=== PATIENT | male | born 1930 | race Caucasian/White ===

== ENCOUNTER 2018-07-27 07:11 | Inpatient (IN) ==
--- NOTE | 2018-07-27 07:44 | ED ---
HPI General Chief complaint: Fall Stated complaint: Fall Time Seen by Provider: 07/27/18 07:31 History of Present Illness HPI narrative: Patient is an 88 pleasant though very hard of hearing male presents emergency department for evaluation of left knee and left hip pain after fall in his front yard. Patient states he has a history of inner ear problem and gets dizzy frequently and falls frequently. Patient states he was going out to meet the shuttle bus because he is going to [place] to have a cochlear implant placed in the [facility]. He became dizzy fell landing on his left knee and left hip. He states he just needs something for the pain. Initially he denies any head injury but states he is fallen 15 times in the past 24 hours is unsure as to whether he hit his head or not. His history is somewhat limited by his poor hearing. Related Data Home Medications Medication Instructions Recorded Confirmed aspirin 325 mg PO DAILY 07/27/18 07/27/18 clopidogrel [Plavix] 75 mg PO DAILY 07/27/18 07/27/18 enalapril maleate 2.5 mg PO DAILY 07/27/18 07/27/18 ferrous sulfate 325 mg PO TID 07/27/18 07/27/18 hydrochlorothiazide 25 mg PO DAILY 07/27/18 07/27/18 lovastatin 40 mg PO DAILY 07/27/18 07/27/18 metoprolol tartrate 25 mg PO DAILY 07/27/18 07/27/18 niacin 1,000 mg PO DAILY 07/27/18 07/27/18 pantoprazole [Protonix] 40 mg PO DAILY 07/27/18 07/27/18 Previous Rx's Medication Instructions Recorded hydrocodone-acetaminophen [[place]] 1 tab PO Q4H #40 tab 07/30/18 rivaroxaban [Xarelto] 10 mg PO DAILY #14 tab 07/30/18 Allergies Allergy/AdvReac Type Severity Reaction Status Date / Time amoxicillin Allergy Rash, Verified 07/27/18 11:23 Generalized Review of Systems ROS: all other systems reviewed are negative [facility] Medical History Medical History Anemia (Acute) Atherosclerotic heart disease (Acute) Atrial fibrillation (Acute) Bilateral primary osteoarthritis of knee (Acute) Blurred vision (Acute) Chronic kidney disease, stage 3 (Acute) Hearing loss (Acute) History of fall (Acute) Hyperlipidemia (Acute) Hypertension (Acute) Stricture of artery (Acute) Hx of TIA (transient ischemic attack) and stroke (Acute) Testicle cancer (Acute) Surgical History Surgical History History of orchiectomy (Acute) Hx of angioplasty (Acute) Hx of removal of testicle (Acute) History of bilateral knee replacement (Acute) History of left hip replacement (Acute) Family History Family History Other Family history non-contributory Social History Social History Substance History: No History of Abuse Second Hand Smoke Exposure: No Smoking Status: Never smoker How Often Do You Have a Drink Containing Alcohol: Never Recent Travel in [facility] within the Last 8 Weeks: No Recent Out of Country Travel within the Last 8 Weeks: No Immunization History Tetanus Immunization: Unsure Exam Narrative Exam Narrative: GENERAL: Well-developed well-nourished, no obvious distress. SKIN: Focused skin assessment warm/dry. Abrasions over the left elbow, left knee and left tib fib all of which are nonbleeding and do not require any repair. HEAD: Atraumatic. Normocephalic. No davis signs no raccoon's eyes EYES: Pupils equal and round. No scleral icterus. No injection or drainage. ENT: No nasal bleeding or discharge. Mucous membranes pink and moist. NECK: Trachea midline. No JVD. CARDIOVASCULAR: Regular rate and rhythm. No murmur appreciated. RESPIRATORY: No accessory muscle use. Clear to auscultation. Breath sounds equal bilaterally. GASTROINTESTINAL: Abdomen soft, non-tender, nondistended. Hepatic and splenic margins not palpable. MUSCULOSKELETAL: No obvious deformities. No clubbing. No cyanosis. No edema. No obvious shortening or deformity. There is some mild joint effusion on the left knee and a well-healed surgical scar in the left knee. Left elbow nontender. Remainder of the extremity exam is atraumatic. No midline CT or L- spine tenderness. NEUROLOGICAL: Awake and alert. No obvious cranial nerve deficits. Motor grossly within normal limits. Normal speech. PSYCHIATRIC: Appropriate mood and affect; insight and judgment normal. Course Initial Documented Vital Signs Pulse Rate 55 L 07/27/18 07:20 Respiratory Rate 16 07/27/18 07:20 Blood Pressure 144/65 H 07/27/18 07:20 Pulse Oximetry 99 07/27/18 07:20 Last Documented Vital Signs Temperature 97.9 F 07/31/18 12:51 Pulse Rate 78 07/31/18 12:51 Respiratory Rate 19 07/31/18 12:51 Blood Pressure 113/55 L 07/31/18 12:51 Pulse Oximetry 95 07/31/18 12:51 Medical Decision Making [facility] Narrative Medical decision making narrative: Patient is an 88-year-old male presents emergency department for evaluation of fall after a dizzy spell. He is incredibly hard of hearing limiting his history. He does have bruising in bilateral upper extremities and I wonder if he is on Coumadin as he is in atrial fibrillation. He does not know his history. CT of the head ordered is negative. Knee x-ray negative, elbow x-ray negative. X-rays of the left hip show an acute subtrochanteric hip fracture about his previous complete hip replacement. Patient's pulse motor and sensory were intact distally in all 4 extremities. No other injuries were identified on physical exam or imaging. Basic labs preoperative chest x-ray and EKG have been ordered. We are waiting for his family member to return with his medication list and history. When I explained the patient had a broken hip he was able to register this information initially but there may be a small component of dementia or memory loss as he has to be reminded several times that his hip is broken. His initial hip replacement he states was done years ago by the [employer]. Medical Screen Exam Complete: Yes Emergency Medical Condition: Yes Lab Data Result diagrams: 07/31/18 04:10 07/28/18 05:10 Lab Results 07/27/18 07/27/18 07/27/18 Range/Units 09:02 09:02 09:02 WBC 8.7 (4.0-11.0) th/mm3 RBC 3.78 L (4.50-5.90) mil/mm3 Hgb 12.1 L (13.0-17.0) gm/dL Hct 35.4 L (39.0-51.0) % MCV 93.8 (80.0-100.0) fL MCH 32.1 (27.0-34.0) pg MCHC 34.2 (32.0-36.0) % RDW 14.3 (11.6-17.2) % Plt Count 145 L (150-450) th/mm3 MPV 8.1 (7.0-11.0) fL Neut % (Auto) 72.2 H (16.0-70.0) % Lymph % (Auto) 16.3 (9.0-44.0) % Whitman % (Auto) 7.9 (0.0-8.0) % Eos % (Auto) 2.9 (0.0-4.0) % Baso % (Auto) 0.7 (0.0-2.0) % Neut # (Auto) 6.3 (1.8-7.7) th/mm3 Lymph # (Auto) 1.4 (1.0-4.8) th/mm3 Whitman # (Auto) 0.7 (0.0-0.9) th/mm3 Eos # (Auto) 0.3 (0.0-0.4) th/mm3 Baso # (Auto) 0.1 (0.0-0.2) th/mm3 WBC Differential . Differential Comment Auto diff final PT (9.8-11.6) sec INR Ratio APTT (23.4-31.7) sec Sodium 138 (136-145) meq/L Potassium 4.3 (3.5-5.1) meq/L Chloride 107 (98-107) meq/L Carbon Dioxide 24.6 (21.0-32.0) meq/L Anion Gap 6 (5-15) meq/L BUN 19 H (7-18) mg/dL Creatinine 1.48 H (0.60-1.30) mg/dL Estimated GFR 45 L (>89) mL/min Random Glucose 94 (74-106) mg/dL Calcium 9.0 (8.5-10.1) mg/dL Total Bilirubin 0.6 (0.2-1.0) mg/dL AST 21 (15-37) U/L ALT 17 (12-78) U/L Alkaline Phosphatase 102 (45-117) U/L Total Protein 6.4 (6.4-8.2) g/dL Albumin 3.6 (3.4-5.0) g/dL Blood Type O Negative Blood Type Recheck Required Antibody Screen Negative MTS Gel Crossmatch 07/27/18 07/28/18 07/29/18 Range/Units 09:02 05:10 04:51 WBC (4.0-11.0) th/mm3 RBC (4.50-5.90) mil/mm3 Hgb 8.3 L D (13.0-17.0) gm/dL Hct 24.5 L (39.0-51.0) % MCV (80.0-100.0) fL MCH (27.0-34.0) pg MCHC (32.0-36.0) % RDW (11.6-17.2) % Plt Count (150-450) th/mm3 MPV (7.0-11.0) fL Neut % (Auto) (16.0-70.0) % Lymph % (Auto) (9.0-44.0) % Whitman % (Auto) (0.0-8.0) % Eos % (Auto) (0.0-4.0) % Baso % (Auto) (0.0-2.0) % Neut # (Auto) (1.8-7.7) th/mm3 Lymph # (Auto) (1.0-4.8) th/mm3 Whitman # (Auto) (0.0-0.9) th/mm3 Eos # (Auto) (0.0-0.4) th/mm3 Baso # (Auto) (0.0-0.2) th/mm3 WBC Differential Differential Comment PT 11.6 (9.8-11.6) sec INR 1.1 Ratio APTT 25.5 (23.4-31.7) sec Sodium 138 (136-145) meq/L Potassium 4.5 (3.5-5.1) meq/L Chloride 108 H (98-107) meq/L Carbon Dioxide 24.6 (21.0-32.0) meq/L Anion Gap 5 (5-15) meq/L BUN 18 (7-18) mg/dL Creatinine 1.30 (0.60-1.30) mg/dL Estimated GFR 52 L (>89) mL/min Random Glucose 97 (74-106) mg/dL Calcium 7.9 L D (8.5-10.1) mg/dL Total Bilirubin (0.2-1.0) mg/dL AST (15-37) U/L ALT (12-78) U/L Alkaline Phosphatase (45-117) U/L Total Protein (6.4-8.2) g/dL Albumin (3.4-5.0) g/dL Blood Type Blood Type Recheck Antibody Screen MTS Gel Crossmatch 07/30/18 07/30/18 07/31/18 Range/Units 04:42 07:37 04:10 WBC (4.0-11.0) th/mm3 RBC (4.50-5.90) mil/mm3 Hgb 6.6 L* 9.6 L D (13.0-17.0) gm/dL Hct 19.7 L* 27.8 L (39.0-51.0) % MCV (80.0-100.0) fL MCH (27.0-34.0) pg MCHC (32.0-36.0) % RDW (11.6-17.2) % Plt Count (150-450) th/mm3 MPV (7.0-11.0) fL Neut % (Auto) (16.0-70.0) % Lymph % (Auto) (9.0-44.0) % Whitman % (Auto) (0.0-8.0) % Eos % (Auto) (0.0-4.0) % Baso % (Auto) (0.0-2.0) % Neut # (Auto) (1.8-7.7) th/mm3 Lymph # (Auto) (1.0-4.8) th/mm3 Whitman # (Auto) (0.0-0.9) th/mm3 Eos # (Auto) (0.0-0.4) th/mm3 Baso # (Auto) (0.0-0.2) th/mm3 WBC Differential Differential Comment PT (9.8-11.6) sec INR Ratio APTT (23.4-31.7) sec Sodium (136-145) meq/L Potassium (3.5-5.1) meq/L Chloride (98-107) meq/L Carbon Dioxide (21.0-32.0) meq/L Anion Gap (5-15) meq/L BUN (7-18) mg/dL Creatinine (0.60-1.30) mg/dL Estimated GFR (>89) mL/min Random Glucose (74-106) mg/dL Calcium (8.5-10.1) mg/dL Total Bilirubin (0.2-1.0) mg/dL AST (15-37) U/L ALT (12-78) U/L Alkaline Phosphatase (45-117) U/L Total Protein (6.4-8.2) g/dL Albumin (3.4-5.0) g/dL Blood Type O Negative Blood Type Recheck Antibody Screen Negative MTS Gel Crossmatch See Detail Imaging Data Radiologist's impression: Cervical Spine CT 07/27/18 07:38 CONCLUSION: Negative trauma study. Elbow X-Ray 07/27/18 07:38 CONCLUSION: Degenerative changes, no fracture. Follow-up in 7-10 days is symptoms persist. Head CT 07/27/18 07:38 CONCLUSION: Atrophy, otherwise negative for an acute process. Jadiel Mendez MD FACR . Hip X-Ray 07/27/18 07:38 CONCLUSION: Subtrochanteric fracture across the total hip arthroplasty, femoral component currently in reasonable alignment Knee X-Ray 07/27/18 07:38 CONCLUSION: Anatomic alignment, no fracture Extensive vascular calcifications Chest X-Ray 07/27/18 08:45 CONCLUSION: Moderate congestive failure, no pneumothorax. Hip X-Ray 07/28/18 00:00 CONCLUSION: Status post open right internal fixation. Hip X-Ray 07/28/18 00:00 CONCLUSION: 1. Status post left hip arthroplasty revision, as above. Discharge Plan Discharge Disposition Patient Disposition: ED Admit(ED Internal Use Only) Discharge Condition Condition: Stable Discharge Order Discharge Orders: Discharge Order (Routine); Ordered 07/31/18 Ordered By: Sada Cox [facility] Clear for Discharge (Routine); Ordered 07/30/18 Ordered By: Tiburcio Sauer ED Use Only Admit Order (Routine); Ordered 07/27/18 Ordered By: Garrett Llanes Discharge Details Diagnosis: Closed hip fracture Physicians Team ED Provider: Garrett Llanes Primary Care Provider: Hubert Lehman V Attending Provider: Katie Booker Other Providers: Aris Kearney ; Rodolfo,Rodolfo Status ED Status: Left Department Discharge Information Discharge Date/Time: 07/27/18 12:24
--- NOTE | 2018-07-27 08:41 | XR ---
EXAM DATE: 07/27/2018 8:26 AM EST AGE/SEX: 88 years / Male INDICATIONS: Fell today, pain left hip, left elbow, and left knee CLINICAL DATA: This is the patient's initial encounter. Patient reports that signs and symptoms have been present for 1 day and indicates a pain score of 10/10. MEDICAL/SURGICAL HISTORY: Non-responsive. . left knee and left hip replaced COMPARISON: No prior exams available for comparison. FINDINGS: There is no joint effusion evident. Degenerative changes are present about the elbow. Alignment anato shankar. Fracture is not appreciated. CONCLUSION: Degenerative changes, no fracture. Follow-up in 7-10 days is symptoms persist. Electronically signed by: Jadiel Mendez MD 07/27/2018 8:40 AM EST
--- NOTE | 2018-07-27 08:42 | XR ---
EXAM DATE: 07/27/2018 8:29 AM EST AGE/SEX: 88 years / Male INDICATIONS: Fell today, pain left elbow, left hip and left knee CLINICAL DATA: This is the patient's initial encounter. Patient reports that signs and symptoms have been present for 1 day and indicates a pain score of 10/10. MEDICAL/SURGICAL HISTORY: Non-responsive. . left knee and left hip replaced COMPARISON: . FINDINGS: There is a fracture across the left prosthesis just below the intertrochanteric line. Distal femurs intact Extensive vascular opacifications are noted. Hemipelvis is intact. CONCLUSION: Subtrochanteric fracture across the total hip arthroplasty, femoral component currently in reasonable alignment Electronically signed by: Jadiel Mendez MD 07/27/2018 8:41 AM EST
--- NOTE | 2018-07-27 08:44 | XR ---
EXAM DATE: 07/27/2018 8:34 AM EST AGE/SEX: 88 years / Male INDICATIONS: Fell today, pain left knee, left hip and left elbow CLINICAL DATA: This is the patient's initial encounter. Patient reports that signs and symptoms have been present for 1 day and indicates a pain score of 10/10. MEDICAL/SURGICAL HISTORY: Non-responsive. . left hip and left knee replaced COMPARISON: No prior exams available for comparison. FINDINGS: Extensive vascular calcic K some noted in this patient with a remote total knee arthroplasty. Prosthe sis is well-seated. Alignment anatomic. Fracture is not appreciated. Old appearing osteotomy of the mid fibula is noted as well. CONCLUSION: Anatomic alignment, no fracture Extensive vascular calcifications Electronically signed by: Jadiel Mendez MD 07/27/2018 8:42 AM EST
--- NOTE | 2018-07-27 09:00 | CT ---
EXAM DATE: 07/27/2018 8:58 AM EST AGE/SEX: 88 years / Male INDICATIONS: Patient fell, dizziness. CLINICAL DATA: This is the patient's initial encounter. Patient reports that signs and symptoms have been present for 1 day and indicates a pain score of 0/10. MEDICAL/SURGICAL HISTORY: Carcinoma, testicular. None. RADIATION DOSE: 36.92 CTDI (mGy) COMPARISON: No prior exams available for comparison. TECHNIQUE: CT of the head without contrast. Using automated exposure control and adjustment of the mA and/or kV according to patient size, radiation dose was kept as low as reasonably achievable to ob tain optimal diagnostic quality images. DICOM format image data is available electronically for revi ew and comparison. FINDINGS: There is central and cortical atrophy with dilatation of ventricular and sulcal spaces. There is no parenchymal hemorrhage, acute infarction or mass lesion identified. There are no extra-axial fluid c ollections appreciated. Periventricular white matter changes are noted. The posterior fossa is unrem arkable with midline fourth ventricle. The portion of the orbits and paranasal sinuses visualized are unremarkable. CONCLUSION: Atrophy, otherwise negative for an acute process. Jadiel Mendez MD FACR . Electronically signed by: Jadiel Mendez MD 07/27/2018 8:59 AM EST
[2018-07-27] MEDS ORDERED: Morphine Inj 4 MG/ML Vial IV.PUSH PRN (09:06)
[2018-07-27] MEDS: Sod Chloride 0.9% Inj 1,000 ML IV.CONT SCH ×2 (09:10→20:54)
[2018-07-27 09:12] LABS: Baso # (Auto) 0.1 th/mm3 (0.0-0.2); Baso % (Auto) 0.7 % (0.0-2.0); Eos # (Auto) 0.3 th/mm3 (0.0-0.4); Eos % (Auto) 2.9 % (0.0-4.0); Hematocrit 35.4 % (39.0-51.0); Hemoglobin 12.1 gm/dL (13.0-17.0); Lymph # (Auto) 1.4 th/mm3 (1.0-4.8); Lymph % (Auto) 16.3 % (9.0-44.0); Mean Corpuscular HGB Conc 34.2 % (32.0-36.0); Mean Corpuscular Hemoglobin 32.1 pg (27.0-34.0); Mean Corpuscular Volume 93.8 fL (80.0-100.0); Mean Platelet Volume 8.1 fL (7.0-11.0); Mono # (Auto) 0.7 th/mm3 (0.0-0.9); Mono % (Auto) 7.9 % (0.0-8.0); Neut # (Auto) 6.3 th/mm3 (1.8-7.7); Neut % (Auto) 72.2 % (16.0-70.0); Platelet Count 145 th/mm3 (150-450); Red Blood Count 3.78 mil/mm3 (4.50-5.90); Red Cell Distribution Width 14.3 % (11.6-17.2); White Blood Count 8.7 th/mm3 (4.0-11.0)
--- NOTE | 2018-07-27 09:14 | CT ---
EXAM DATE: 07/27/2018 9:01 AM EST AGE/SEX: 88 years / Male INDICATIONS: Neck pain after fall. CLINICAL DATA: This is the patient's initial encounter. Patient reports that signs and symptoms have been present for 1 day and indicates a pain score of 0/10. MEDICAL/SURGICAL HISTORY: Carcinoma, testicular. None. RADIATION DOSE: 25.45 CTDI (mGy) COMPARISON: No prior exams available for comparison. TECHNIQUE: Contiguous axial images were obtained using helical multirow detector technique. The vol umetric data was post-processed with multiplanar reconstruction in oblique axial, sagittal, and coron al planes. Using automated exposure control and adjustment of the mA and/or kV according to patient s ize, radiation dose was kept as low as reasonably achievable to obtain optimal diagnostic quality bret ges. DICOM format image data is available electronically for review and comparison. FINDINGS: Vertebrae: Normal vertebral body height. The dens is intact. There is mild osteopenia. Discs: Diffuse degenerative disc changes noted with disc space narrowing and hypertrophic changes. Th ere are degenerative changes involving the atlantoaxial joint with prominent capsule calcification. Alignment: Normal. No subluxation. Axial images demonstrate degenerative disc changes with disc osteophyte complexes. There are degenera tive change involving the facet joints. There is no evidence of fracture. Paravertebral soft tissues appear unremarkable. CONCLUSION: Negative trauma study. Electronically signed by: Glenn Davila MD 07/27/2018 9:12 AM EST
--- NOTE | 2018-07-27 09:14 | XR ---
EXAM DATE: 07/27/2018 9:04 AM EST AGE/SEX: 88 years / Male INDICATIONS: Fell today, chest pain CLINICAL DATA: This is the patient's initial encounter. Patient reports that signs and symptoms have been present for 1 day and indicates a pain score of 2/10. MEDICAL/SURGICAL HISTORY: None. . left hip and left knee replaced COMPARISON: No prior exams available for comparison. FINDINGS: The heart is enlarged. Mild to moderate interstitial edema is present. There is no pneumothorax. Ther e is no pleural effusion. Degenerative changes with old rotator cuff tear are seen about the left shoulder. Displaced fracture is not appreciated. CONCLUSION: Moderate congestive failure, no pneumothorax. Electronically signed by: Jadiel Mendez MD 07/27/2018 9:12 AM EST
[2018-07-27 09:21] LABS: Activated Partial Thrombo Time 25.5 sec (23.4-31.7); INR 1.1 Ratio; Prothrombin Time 11.6 sec (9.8-11.6)
[2018-07-27 09:26] LABS: Alanine Aminotransferase 17 U/L (12-78); Albumin 3.6 g/dL (3.4-5.0); Anion Gap 6 meq/L (5-15); Aspartate Aminotransferase 21 U/L (15-37); Blood Urea Nitrogen 19 mg/dL (7-18); Carbon Dioxide 24.6 meq/L (21.0-32.0); Chloride 107 meq/L (98-107); Glomerular Filtration Rate 45 mL/min (>89); Glucose,Random 94 mg/dL (74-106); Potassium 4.3 meq/L (3.5-5.1); Sodium 138 meq/L (136-145)
[2018-07-27 09:29] LABS: Alkaline Phosphatase 102 U/L (45-117); Total Protein 6.4 g/dL (6.4-8.2)
--- NOTE | 2018-07-27 13:41 | P.HPIM ---
History of Present Illness Primary Care Physician: Hubert Lehman MD Chief Complaint: left hip pain History of Present Illness: patient is a 88 y/o male, very hard of hearing, who presented to ER with left hip pain. 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 he says that he has a problem with keeping his balance and he fell before. he says that the pain is mild while he's not moving. otherwise he denies any other complaints including chest pain or sob. he doesn't report any loss of consciousness. Inpatient Certification Inpatient Certification: I certify that the inpatient services were ordered in accordance with Medicare regulations governing the order. This includes certification that hospital inpatient services are reasonable and necessary and in the case of services not specified as inpatient-only under 42 CFR 419.22(n), that they are appropriately provided as inpatient services in accordance to with the 2-midnight benchmark under 43 CFR 412.3(e) Estimated Total Length of Stay (Days): 2 Plans for Post Hospital Care: Not yet determined Review of Systems Review of Systems: all other systems reviewed are negative [facility] Medical History Medical History Anemia (Acute) Atherosclerotic heart disease (Acute) Atrial fibrillation (Acute) Bilateral primary osteoarthritis of knee (Acute) Blurred vision (Acute) Chronic kidney disease, stage 3 (Acute) Hearing loss (Acute) History of fall (Acute) Hyperlipidemia (Acute) Hypertension (Acute) Stricture of artery (Acute) Hx of TIA (transient ischemic attack) and stroke (Acute) Testicle cancer (Acute) Surgical History Surgical History History of orchiectomy (Acute) Hx of angioplasty (Acute) Hx of removal of testicle (Acute) History of bilateral knee replacement (Acute) History of left hip replacement (Acute) Family History Family History Other Family history non-contributory Social History Social History Substance History: No History of Abuse Second Hand Smoke Exposure: No Smoking Status: Never smoker How Often Do You Have a Drink Containing Alcohol: Never Recent Travel in [facility] within the Last 8 Weeks: No Recent Out of Country Travel within the Last 8 Weeks: No Immunization History Tetanus Immunization: Unsure Medications and Allergies Allergies Allergy/AdvReac Type Severity Reaction Status Date / Time amoxicillin Allergy Rash, Verified 07/27/18 11:23 Generalized Home Medications Medication Instructions Recorded Confirmed Type aspirin 325 mg PO DAILY 07/27/18 07/27/18 History clopidogrel [Plavix] 75 mg PO DAILY 07/27/18 07/27/18 History enalapril maleate 2.5 mg PO DAILY 07/27/18 07/27/18 History ferrous sulfate 325 mg PO TID 07/27/18 07/27/18 History hydrochlorothiazide 25 mg PO DAILY 07/27/18 07/27/18 History lovastatin 40 mg PO DAILY 07/27/18 07/27/18 History metoprolol tartrate 25 mg PO DAILY 07/27/18 07/27/18 History niacin 1,000 mg PO DAILY 07/27/18 07/27/18 History pantoprazole [Protonix] 40 mg PO DAILY 07/27/18 07/27/18 History Active Medications: Active Medications Sodium Chloride (Ns Inj) 1,000 mls @ 84 mls/hr IV.CONT .[id number] COLUMBA Last Admin: 07/27/18 09:10 Dose: 84 mls/hr Morphine Sulfate (Morphine Inj) 2 mg IV.PUSH Q4H PRN PRN Reason: pain Sodium Chloride (Ns Flush) 2 ml IV.FLUSH UNSCH PRN PRN Reason: FLUSH AFTER USING IV ACCESS Physical Exam Vital signs: Last Vital Signs Temp 98 F 07/27/18 07:53 Pulse 55 L 07/27/18 11:32 Resp 16 07/27/18 11:32 BP 176/79 H 07/27/18 11:32 Pulse Ox 99 07/27/18 11:32 Intake & Output 07/25/18 07/26/18 07/27/18 07/28/18 06:59 06:59 06:59 06:59 Weight 95.254 kg Constitutional no acute distress Routine HEENT Exam Eye: Present PERRL Routine Neck Exam Present supple Routine Respiratory Exam Present CTA bilaterally Routine Cardiovascular Exam Present RRR Routine Abdominal Exam Present soft Routine Extremities Exam Comments: mild bilateral pedal edema. Routine Skin Exam Comments: laceration noted on the left leg. Routine Neurological Exam Present alert and oriented X3 Results Labs CBC & Chem 7: 07/29/18 04:51 07/28/18 05:10 Imaging Impressions Cervical Spine CT 07/27/18 07:38 CONCLUSION: Negative trauma study. Elbow X-Ray 07/27/18 07:38 CONCLUSION: Degenerative changes, no fracture. Follow-up in 7-10 days is symptoms persist. Head CT 07/27/18 07:38 CONCLUSION: Atrophy, otherwise negative for an acute process. Jadiel Mendez MD FACR . Hip X-Ray 07/27/18 07:38 CONCLUSION: Subtrochanteric fracture across the total hip arthroplasty, femoral component currently in reasonable alignment Knee X-Ray 07/27/18 07:38 CONCLUSION: Anatomic alignment, no fracture Extensive vascular calcifications Chest X-Ray 07/27/18 08:45 CONCLUSION: Moderate congestive failure, no pneumothorax. Caprini VTE Risk Assessment Caprini VTE Risk Assessment: Moderate/High Risk (score >= 2) Caprini Risk Assessment Model: Point Value = 1 Point Value = 2 Point Value = 3 Point Value = 5 Age 41-60 Minor surgery BMI > 25 kg/m2 Swollen legs Varicose veins or History of unexplained or recurrent spontaneous Oral contraceptives or hormone replacement Sepsis (< 1 month) Serious lung disease, including pneumonia (< 1 month) Abnormal pulmonary function Acute myocardial infarction Congestive heart failure (< 1 month) History of inflammatory bowel disease Medical patient at bed rest Age 61-74 Arthroscopic surgery Major open surgery (> 45 min) Laparoscopic surgery (> 45 min) Malignancy Confined to bed (> 72 hours) Immobilizing plaster cast Central venous access Age >= 75 History of VTE Family history of VTE Factor V Leiden Prothrombin [id number] Lupus anticoagulant Anticardiolipin antibodies Elevated serum homocysteine Heparin-induced thrombocytopenia Other congenital or acquired thrombophilia Stroke (< 1 month) Elective arthroplasty Hip, pelvis, or leg fracture Acute spinal cord injury (< 1 month) Prophylaxis Regimen: Total Risk Factor Score Risk Level Prophylaxis Regimen 0-1 Low Early ambulation 2 Moderate Order ONE of the following: *Sequential Compression Device (SCD) *Heparin 5000 units SQ BID 3-4 Higher Order ONE of the following medications: *Heparin 5000 units SQ TID *Enoxaparin/Lovenox 40 mg SQ daily (WT < 150 kg, CrCl > 30 mL/min) *Enoxaparin/Lovenox 30 mg SQ daily (WT < 150 kg, CrCl > 10-29 mL/min) *Enoxaparin/Lovenox 30 mg SQ BID (WT < 150 kg, CrCl > 30 mL/min) AND/OR *Sequential Compression Device (SCD) 5 or more Highest Order ONE of the following medications: *Heparin 5000 units SQ TID (Preferred with Epidurals) *Enoxaparin/Lovenox 40 mg SQ daily (WT < 150 kg, CrCl > 30 mL/min) *Enoxaparin/Lovenox 30 mg SQ daily (WT < 150 kg, CrCl > 10-29 mL/min) *Enoxaparin/Lovenox 30 mg SQ BID (WT < 150 kg, CrCl > 30 mL/min) AND *Sequential Compression Device (SCD) Assessment and Plan Plan A/P - left hip fracture after a fall; keep NPO- start on pain control and consult ortho. -atrial fibrillation; resume Metoprolol- hold aspirin -CVA; hold aspirin and plavix for now-pending ortho evaluation. continue statin -renal insufficiency- likely chronic- will monitor -DVT prophylaxis; pending ortho evalaution/ intervention. Discussed Condition With: ER physician and the patient. Discharge Planning: pending ortho intervention.
[2018-07-27] MEDS: Ferrous Sulfate 325 MG Tablet PO SCH (18:01)
--- NOTE | 2018-07-27 18:48 | ECG ---
Date Performed: 07/27/2018 Time Performed: 09:00:06 PTAGE: 88 years EKG: ATRIAL FIBRILLATION WITH SLOW VENTRICULAR RESPONSE MODERATE ST DEPRESSION ABNORMAL ECG NO PREVIOUS TRACING DOCTOR: Jimmie Beth Interpretating Date/Time 07/27/2018 18:45:30
[2018-07-28 06:44] LABS: Calcium 7.9 mg/dL (8.5-10.1); Carbon Dioxide 24.6 meq/L (21.0-32.0); Potassium 4.5 meq/L (3.5-5.1)
[2018-07-28] MEDS ORDERED: Chlorhexidine Gluconate 2% 1 Pack (2 Cloths) TOPICAL ONE (08:20)
[2018-07-28] MEDS ORDERED: Metoprolol Tartrate 25 MG Tablet PO ONE (08:20)
[2018-07-28] MEDS: Metoprolol Tartrate 25 MG Tablet PO SCH (08:32)
[2018-07-28] MEDS ORDERED: Sodium Chlor 0.9% Inj 500 ML IV.SIG ONE (09:00)
[2018-07-28] MEDS ORDERED: ceFAZolin 1 GM Premix Inj 2 GM/100 ML PIGGYBACK IV.SIG ONE (10:09)
[2018-07-28] MEDS ORDERED: Tobramycin Sulfate 1,200 MG Vial (for ortho/sterile core) OTHER ONE (10:26)
[2018-07-28] MEDS ORDERED: SODIUM CHLOR 0.9% IV.SIG SCH (12:30)
[2018-07-28] MEDS ORDERED: TRANEXAMIC ACID IV.SIG SCH (12:30)
[2018-07-28] MEDS ORDERED: Bisacodyl 10 MG Supp RECTAL PRN (13:38)
[2018-07-28] MEDS ORDERED: Post-op Orders (for Pharmacy) OTHER STA (13:38)
[2018-07-28] MEDS ORDERED: Morphine Inj 4 MG/ML Vial IV.PUSH PRN (13:38)
--- NOTE | 2018-07-28 13:54 | P.OP ---
- Preoperative Diagnosis (1) Fracture of femur, intertrochanteric, left, closed (2) Failure of total hip arthroplasty Date of procedure: 07/28/18 Procedure: Open reduction to fixation left proximal femur fracture, revision of left total hip arthroplasty femoral component Anesthesia: DINO Surgeon: Aris Kearney MD Planning And Analysis Manager: VIRGINIA Pastrana PA-C The surgical procedure was assisted by my physician electrician assistant. My P.A. presence was necessary throughout this case for the manipulation and positioning of the surgical extremity. My P.A. was assisting me throughout the duration of this procedure. The skill set of a physician electrician assistant was medically necessary to complete this procedure. During the surgical case the fiberglass quality technician was working at the back table and the physician electrician assistant was directly assisting me. Operation and Findings: Implants used: Size 17 mm x 190 mm reclaim femoral stem, size [75 mm x 20 mm] proximal body, size [32+5 metal] femoral head Plan of activity: Toe-touch weightbearing, posterior precautions Details of procedure: Patient was seen and evaluated. Patient was found to have a displaced left periprosthetic proximal femur fracture. Informed consent was obtained for surgery after detailed discussion of the risk and benefits. Patient is brought the operating room. IV sedation and general anesthesia were administered. Patient was placed in lateral decubitus position. Operative site was prepped and draped in usual sterile fashion. Timeout procedure was performed. Clean air was utilized for this procedure. Procedure began with a 9-inch incision over the proximal lateral thigh. The preexisting hip incision was occluded. Subcutaneous tissue dissected with Bovie. Iliotibial band was split in line with the fibers. Vastus lateralis was not elevated from posterior to anterior. At this point, the fracture was visualized. The fracture was then cleaned with curettes. The femoral stem was visualized to the fracture site. The femoral stem was clearly loose. At this point, a decision was made to proceed with revision of the femoral stem as well. The proximal femur fracture was temporarily stabilized with a cable. A cerclage cable was passed around the fracture site. The cable was loosely tension to help hold the proximal segment in place. Attention was turned to the femoral stem. The hip was now carefully dislocated. The femoral stem was now removed using vice linter tender. At this point, attention was turned to do preparation of the femoral stem. Using the [employer] Reclaim system, a revision style stem was utilized. The canal was sequentially reamed up to a size 17. This was found to be an excellent fit. The 17 reamer was left into the stem as a trial. A proximal body was placed. The height of the stem was based off the greater trochanter. At this point, a 75mm trial body and neck were placed. A size 32+5 was also placed. The trial hip was now reduced. Patient had excellent range of motion with good stability. The trial components were now removed. A size 17 x 190-mm [employer] Reclaim stem was now impacted into the femur in appropriate position. At this point, the proximal segment was reamed using the appropriate reamers. A proximal 75 x 20-mm body was selected. This body was impacted onto the stem in appropriate anteversion. Using the compression device, the proximal and distal stems were compressed together. Set screw was now placed proximally. Care was taken to keep appropriate anteversion of the femoral head and neck. A +5 head was now opened. The +5 head was impacted onto the stem, the hip was now reduced. The patient had excellent range of motion with good stability. The left leg did appear to be a few millimeters longer than the right. Fluoroscopy confirmed appropriate placement of components. Attention was first turned towards open reduction and internal fixation of the femur fracture. The proximal femur fracture fragments were manipulated. Fracture keyed into appropriate alignment. A Synthes proximal femur plate was selected. The hook plate was placed over the trochanteric fragment. Multiple Synthes cables were now placed to compress the plate to bone and stabilized the fracture. Additional unicortical screws were placed above and below fracture. The cables were tensioned appropriately, clamped, and then cut. Wound was thoroughly irrigated. Fascial layers were closed with #1 Vicryl. Subcutaneous tissue was closed with 3-0 Vicryl and skin was closed with yonis. Sterile dressings were applied. The patient was placed into a knee immobilizer. He was awakened and transferred to recovery room in stable condition.
[2018-07-28] MEDS ORDERED: ceFAZolin Inj 2,000 MG in Sodium Chlor 0.9% Inj 80 ML IV.SIG SCH (14:00)
[2018-07-28] MEDS ORDERED: Vancomycin Inj 1 GM/200 ML PIGGYBACK IV.SIG SCH (14:00)
[2018-07-28] MEDS ORDERED: fentaNYL Citrate Inj 100 MCG/2 ML Ampul ONE (14:21)
[2018-07-28] MEDS ORDERED: Morphine Sulfate Inj 2 MG/ML Vial IV.PUSH PRN (14:30)
--- NOTE | 2018-07-28 14:30 | P.PNIM ---
Subjective Interval history: seen in recovery room. had ortho intervention earlier today. in no acute distress. d/w the RN at the bedside and no acute issues reported. Physical Exam Vital signs: Last Vital Signs Temp 98.7 F 07/28/18 08:00 Pulse 64 07/28/18 08:00 Resp 17 07/28/18 08:00 BP 154/67 H 07/28/18 08:00 Pulse Ox 95 07/28/18 09:07 Intake & Output 07/26/18 07/27/18 07/28/18 07/29/18 06:59 06:59 06:59 06:59 Intake Total 2480 / 2480 1500 / 1500 Output Total 1350 / 1350 400 / 400 Balance 1130 / 1130 1100 / 1100 Weight 95.2 kg Constitutional no acute distress Routine Respiratory Exam Present CTA bilaterally Routine Cardiovascular Exam Present RRR Routine Abdominal Exam Present soft Routine Extremities Exam Comments: no pedal edema. Routine Neurological Exam mildly lethargic due to anaesthesia- easily arousable. Results Labs CBC & Chem 7: 07/29/18 04:51 07/28/18 05:10 Assessment and Plan Plan A/P - left hip fracture after a fall; s/p Open reduction to fixation left proximal femur fracture, revision of left total hip arthroplasty femoral component on ; continue pain control- ortho following. -atrial fibrillation; resumed Metoprolol- now on Xarelto ( for DVT prophylaxis) ; however may not be a good candidate for long-term anticoagulation due to being high-risk for falls; will consider aspirin after has finished the course of Xarelto for DVT prophylaxis. -CVA; started on Xarelto- will consider switching to aspirin ( long-term) after has finished the course of Xarelto for DVT prophylaxis. -acute kidney injury superimposed on chronic renal insufficiency- has much improved. -DVT prophylaxis; per ortho. Discharge Planning: when cleared by ortho. Progress Note: Quality VTE Deep Vein Thrombosis/Pulmonary Embolism Present on Admission: No
[2018-07-28] MEDS ORDERED: *morphine SULFATE 4 MG/ML PERIprocedure ONLY ONE (14:33)
--- NOTE | 2018-07-28 14:37 | XR ---
EXAM DATE: 07/28/2018 2:18 PM EST AGE/SEX: 88 years / Male INDICATIONS: Revision of total hip; ORIF. CLINICAL DATA: This is the patient's subsequent encounter. Patient reports that signs and symptoms h ave been present for 2 days and indicates a pain score of Nonresponsive. MEDICAL/SURGICAL HISTORY: Non-responsive. Non-responsive. COMPARISON: [facility] [place], HIP LEFT W AP PELVIS 2V, 07/27/2018. . FINDINGS: Multiple intraoperative images of the left hip demonstrate interval revision of left hip arthroplasty following subtrochanteric fracture. There is now plate and screws as well as cerclage wire fixation of the proximal femur. Hardware appears grossly well-positioned and intact. There is near-anatomic al ignment. Remainder of exam is unchanged. CONCLUSION: 1. Status post left hip arthroplasty revision, as above. Electronically signed by: Bc Suárez MD 07/28/2018 2:36 PM EST
--- NOTE | 2018-07-28 15:09 | XR ---
EXAM DATE: 07/28/2018 2:57 PM EST AGE/SEX: 88 years / Male INDICATIONS: Postoperative evaluation status post open reduction internal fixation of left hip fract ure.. CLINICAL DATA: This is the patient's initial encounter. Patient reports that signs and symptoms have been present for 1 day and indicates a pain score of Nonresponsive. MEDICAL/SURGICAL HISTORY: Non-responsive. Non-responsive. COMPARISON: [facility], HIP LEFT W AP PELVIS 2V, 07/27/2018. . FINDINGS: Multiple views of the left hip and femur were obtained and demonstrate interval placement of a screw plate fixation device and cerclage wires along the proximal left femoral fracture. The patient is sta tus post left hip arthroplasty and the acetabular and femoral components are intact and in normal ali gnment. The proximal femur fracture is now in near-anatomic alignment with mild separation of the med ial fracture by approximately 1 cm. There is no abnormal angulation. The distal prosthesis and mid fe mur remain intact. There is mild osteopenia. CONCLUSION: Status post open right internal fixation. Electronically signed by: Glenn Davila MD 07/28/2018 3:08 PM EST
--- NOTE | 2018-07-28 15:21 | P.CONOP ---
[facility] Orthopedics Consult Note - [facility] Consult date: 07/28/18 Chief complaint: Left Hip Fracture, Fall Narrative: Logan is an 88-year-old male. 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 He was walking in his driveway when he tripped and fell. He lost his balance. He describes a mechanical fall. He landed on his left hip. He has a history of previous left total hip arthroplasty done approximately 4 years ago. His hip and been doing well until this fall. He has pain with any motion of his hip. He is unable to stand or bear weight. Pain is improved with rest. He denies dizziness, syncope, or loss of consciousness. Review of Systems Patient denies fevers, chills, weight loss, headache, visual changes, chest pain , palpitations, shortness of breath, nausea, vomiting, no urinary changes, diarrhea, bowel changes, neck pain, back pain, skin rashes, weakness of extremities, easy bleeding, enlarged lymph nodes, numbness of extremities, anxiety, or depression. He complains of left hip pain. He has chronic hearing loss Patient's social history, past medical history, and family history were reviewed on chart and with patient. [facility] - History History Provided By: Patient - Medical History Medical History: Medical History (Last Reviewed 07/28/18 @ 15:19 by Aris Kearney MD) Anemia Atherosclerotic heart disease Atrial fibrillation Bilateral primary osteoarthritis of knee Blurred vision Chronic kidney disease, stage 3 Hearing loss History of fall Hyperlipidemia Hypertension Stricture of artery Hx of TIA (transient ischemic attack) and stroke Testicle cancer - Surgical History Surgical History: Surgical History (Last Reviewed 07/28/18 @ 15:19 by Aris Kearney MD) History of orchiectomy Hx of angioplasty Hx of removal of testicle History of bilateral knee replacement History of left hip replacement - Family History Family History: Family History (Last Updated 07/28/18 @ 15:19 by Aris Kearney MD) Other Family history non-contributory - Social History I have reviewed the patient's Social History: Yes - Tobacco History Second Hand Smoke Exposure: No Smoking Status: Never smoker - Alcohol History How Often Do You Have a Drink Containing Alcohol: Monthly or less - Substance Use History Substance History: No History of Abuse - Travel History Recent Travel in the [place] Within the Last 8 Weeks: No Recent Travel Out of the Country Within the Last 8 Weeks: No - Immunization History Tetanus Immunization: Unsure Hx Influenza Vaccine This Season: Unable to Assess Medications and Allergies Active Medications: Active Medications Hydrocodone Bitart/Acetaminophen ([place] 7.5/325) 1 tab PO Q3H PRN PRN Reason: Pain Scale 3-10 Al Hydroxide/Mg Hydroxide (Milk Of Magncarlos Liq) 30 ml PO BID PRN PRN Reason: MILD CONSTIPATION Bisacodyl (Dulcolax Supp) 10 mg RECTAL DAILY PRN PRN Reason: SEVERE CONSITIPATION Calcium/Vitamin D (Oscal With D 250/125 Mg) 1 tab PO TID [facility] Diphenhydramine HCl (Benadryl) 25 mg PO Q6H PRN PRN Reason: ITCHING Ferrous Sulfate (Ferosul) 325 mg PO TID [facility] Last Admin: 07/27/18 18:01 Dose: 325 mg Sodium Chloride (Ns Inj) 1,000 mls @ 84 mls/hr IV.CONT .[id number] [facility] Last Admin: 07/27/18 20:54 Dose: 84 mls/hr Lactated Ringer's (Lr 1000 Ml Inj) 1,000 mls @ 30 mls/hr IV.SIG .Q24H [facility] Stop: 07/29/18 08:29 Sodium Chloride (Ns Inj) 500 mls @ 30 mls/hr IV.SIG .Q10H ONE Stop: 07/29/18 01:39 Tranexamic Acid 1,428 mg/ (Sodium Chloride) 114.28 mls @ 200 mls/hr IV.SIG ONCE [facility] Stop: 07/28/18 18:31 Lactated Ringer's (Lr 1000 Ml Inj) 1,000 mls @ 50 mls/hr IV.CONT .Q20H [facility] Cefazolin Sodium/Dextrose (Ancef 2 Gm Premix Inj) 2 gm in 50 mls @ 100 mls/hr IV.SIG Q8H [facility] Stop: 07/30/18 10:29 Vancomycin HCl 1,000 mg/ (Sodium Chloride) 250 mls @ 250 mls/hr IV.SIG Q12H [facility] Stop: 07/29/18 12:59 Metoprolol Tartrate (Lopressor) 25 mg PO DAILY [facility] Last Admin: 07/28/18 08:32 Dose: 25 mg Miscellaneous Information (Misc Nursing Information) 0 each OTHER UNSCH PRN PRN Reason: SEE LABEL COMMENTS Stop: 07/29/18 14:09 Morphine Sulfate (Morphine Inj) 3 mg IV.PUSH Q3H PRN PRN Reason: BREAKTHROUGH PAIN Morphine Sulfate (Morphine Inj) 2 mg IV.PUSH Q4H PRN PRN Reason: PAIN SCALE 1 TO 10 Niacin (Slo-Niacin) 1,000 mg PO HS [facility] Last Admin: 07/27/18 20:52 Dose: 1,000 mg Ondansetron HCl (Zofran Odt) 4 mg PO Q6H PRN PRN Reason: NAUSEA OR VOMITING Ondansetron HCl (Zofran Inj) 4 mg IV.PUSH Q6H PRN PRN Reason: NAUSEA Pantoprazole Sodium (Protonix) 40 mg PO DAILY [facility] Pravastatin Sodium (Pravachol) 40 mg PO HS [facility] Last Admin: 07/27/18 20:52 Dose: 40 mg Rivaroxaban (Xarelto) 10 mg PO Q24H [facility] Senna/Docusate Sodium (Amie-Colace) 1 tab PO BID [facility] Sennosides (Senokot) 17.2 mg PO BID PRN PRN Reason: Moderate Constipation Sodium Chloride (Ns Flush) 2 ml IV.FLUSH UNSCH PRN PRN Reason: FLUSH AFTER USING IV ACCESS Vitamin D (Vitamin D3) 5,000 unit PO DAILY [facility] Allergies Allergy/AdvReac Type Severity Reaction Status Date / Time amoxicillin Allergy Rash, Verified 07/27/18 11:23 Generalized Home Medications Medication Instructions Recorded Confirmed Type aspirin 325 mg PO DAILY 07/27/18 07/27/18 History clopidogrel [Plavix] 75 mg PO DAILY 07/27/18 07/27/18 History enalapril maleate 2.5 mg PO DAILY 07/27/18 07/27/18 History ferrous sulfate 325 mg PO TID 07/27/18 07/27/18 History hydrochlorothiazide 25 mg PO DAILY 07/27/18 07/27/18 History lovastatin 40 mg PO DAILY 07/27/18 07/27/18 History metoprolol tartrate 25 mg PO DAILY 07/27/18 07/27/18 History niacin 1,000 mg PO DAILY 07/27/18 07/27/18 History pantoprazole [Protonix] 40 mg PO DAILY 07/27/18 07/27/18 History Exam Vital signs: Vital Signs 07/27/18 15:44 07/27/18 20:00 07/27/18 20:38 Temperature 97.5 F L 98.0 F Pulse Rate 53 L 53 L Respiratory Rate 17 18 Blood Pressure 159/70 H 148/66 H Pulse Oximetry 98 97 97 07/28/18 00:00 07/28/18 08:00 07/28/18 09:07 Temperature 98.5 F 98.7 F Pulse Rate 64 64 Respiratory Rate 19 17 Blood Pressure 159/71 H 154/67 H Pulse Oximetry 94 L 96 95 07/28/18 14:10 07/28/18 14:15 07/28/18 14:30 Temperature 99.4 F Pulse Rate 75 74 77 Respiratory Rate 15 16 15 Blood Pressure 125/59 L 121/58 L 138/63 Pulse Oximetry 98 98 97 07/28/18 14:45 07/28/18 14:50 07/28/18 15:00 Temperature 98.6 F Pulse Rate 75 78 Respiratory Rate 14 14 14 Blood Pressure 146/67 H 134/65 Pulse Oximetry 97 97 Intake & Output 07/27/18 07/28/18 07/28/18 18:59 06:59 18:59 Intake Total 1000 / 1000 1480 / 1480 1500 / 1500 Output Total 300 / 300 1050 / 1050 400 / 400 Balance 700 / 700 430 / 430 1100 / 1100 Weight 95.254 kg 95.2 kg Intake: IV 1000 / 1000 NS Inj 1,000 ML @ 84 mls/hr IV. 1000 / 1000 CONT .[id number] [facility] Rx#:[id number] Oral 1000 / 1000 480 / 480 Anesthesia Amount 1500 / 1500 Output: Urine 300 / 300 1050 / 1050 100 / 100 Estimated Blood Loss 300 / 300 Other: # Bowel Movements 0 Weight On Admission 95.254 kg Narrative: Jitendra is an 88-year-old male. He is hard of hearing but otherwise communicates well. General: Awake and alert. No acute distress. Appears well-developed well- nourished Head: Normocephalic, atraumatic pupils are equal Neck: Soft, nontender, trachea midline Abdomen: Soft, nondistended Examination of right arm reveals no pain or deformity with shoulder, elbow, or wrist motion. Skin is intact. Radial pulse is palpable. Normal capillary refill in fingers. Sensation is intact in radial, ulnar, and median nerve distributions. Leave Manager strength is +5. No lymphadenopathy noted. Examination of left arm reveals no pain or deformity with shoulder, elbow, or wrist motion. Skin is intact. Radial pulse is palpable. Normal capillary refill in fingers. Sensation is intact in radial, ulnar, and median nerve distributions. Leave Manager strength is +5. No lymphadenopathy noted. Examination of left lower extremity reveals pain with any attempted hip motion. He has tenderness palpation around the left hip. Left hip incision is well- healed from previous surgery. Skin is intact. Sensation is intact in left foot. Dorsalis pedis pulse is palpable. Normal capillary refill and feet. Thigh and calf compartments are soft. No lymphadenopathy noted. +5 strength of ankle dorsiflexion and plantarflexion. Examination of right lower extremity reveals no pain or deformity with hip, knee , or ankle motion. Skin is intact. Sensation is intact in right foot. Dorsalis pedis pulse is palpable. Normal capillary refill and feet. Thigh and calf compartments are soft. No lymphadenopathy noted. +5 strength of ankle dorsiflexion and plantarflexion. Results - Labs Result Diagrams: 07/27/18 09:02 07/28/18 05:10 Labs: Laboratory Results - last 24 hr 07/28/18 05:10 Sodium 138 Potassium 4.5 Chloride 108 H Carbon Dioxide 24.6 Anion Gap 5 BUN 18 Creatinine 1.30 Estimated GFR 52 L Random Glucose 97 Calcium 7.9 L D - Diagnostic results Imaging: Impressions Hip X-Ray 07/28/18 00:00 CONCLUSION: Status post open right internal fixation. Hip X-Ray 07/28/18 00:00 CONCLUSION: 1. Status post left hip arthroplasty revision, as above. Assessment and Plan - Assessment and Plan Logan is an 88-year-old male with a history of previous left total hip arthroplasty. He had a fall resulting in periprosthetic left proximal femur fracture. The femoral component is likely loose. At this point I would recommend surgical open reduction internal fixation of left proximal femur with possible revision total hip arthroplasty. The risk and benefits of surgery were discussed in depth with patient. All questions were answered. I will plan on surgery today. The risk and benefits of surgery were discussed in depth with patient. The risk of surgery include bleeding, infection, injuries to arteries, nerves, or blood vessels, infection, wound complications, nonunion, malunion, painful hardware, leg length discrepancy, hip dislocation and need for further surgery. I also discussed medical complications including blood clots, pneumonia, stroke, heart attack, and . Informed consent was obtained and all questions were answered. N.p.o.--plan on surgery this morning Calcium and vitamin D supplementation Physical therapy consult Follow-up with Dr. Kearney in 2 weeks SCDs, Baylee Marinelli A mid-level provider in my office (nurse practitioner or physician research assistant member) may see this patient on follow-up visits and continue to implement the objectives of this plan including: Starting or adjusting medications, injections , cast application, orthotics, brace application, physical therapy, radiological studies (including x-ray, MRI, CT, ultrasound, bone scan), vascular studies, neurologic studies, specialist consultation, and proceeding with surgical management, as appropriate.
[2018-07-28] MEDS: ceFAZolin 2 GM Premix Inj 2 GM/50 ML PIGGYBACK IV.SIG SCH (17:50)
[2018-07-28] MEDS: Sod Chloride 0.9% Inj 1,000 ML IV.CONT SCH ×2 (19:17→21:53)
[2018-07-28] MEDS: Ferrous Sulfate 325 MG Tablet PO SCH (19:17)
[2018-07-28] MEDS: Calcium/Vitamin D 250/125 MG Tablet PO SCH (19:18)
[2018-07-28] MEDS: Senna/Docusate Sodium 8.6/50 MG Tablet PO SCH (21:52)
[2018-07-28] MEDS: Vancomycin Inj 1,000 MG in Sodium Chlor 0.9% Inj 250 ML IV.SIG SCH (23:39)
[2018-07-29] MEDS: ceFAZolin 2 GM Premix Inj 2 GM/50 ML PIGGYBACK IV.SIG SCH ×3 (02:23→18:58)
[2018-07-29 05:13] LABS: Hematocrit 24.5 % (39.0-51.0); Hemoglobin 8.3 gm/dL (13.0-17.0)
--- NOTE | 2018-07-29 06:37 | P.PNOP ---
Subjective Interval history: POD 1 s/p ORIF left proximal femur with Revision left hip stem doing well. patient extremely hard of hearing and cannot hear any verbal communication due to lack of hearing aids. communicating via writing on paper. Physical Exam Vital signs: Vital Signs 07/28/18 08:00 07/28/18 09:07 07/28/18 12:00 Temperature 98.7 F 97.8 F Pulse Rate 64 100 H Respiratory Rate 17 18 Blood Pressure 154/67 H 128/72 Pulse Oximetry 96 95 98 07/28/18 14:10 07/28/18 14:15 07/28/18 14:30 Temperature 99.4 F Pulse Rate 75 74 77 Respiratory Rate 15 16 15 Blood Pressure 125/59 L 121/58 L 138/63 Pulse Oximetry 98 98 97 07/28/18 14:45 07/28/18 14:50 07/28/18 15:00 Temperature 98.6 F Pulse Rate 75 78 Respiratory Rate 14 14 14 Blood Pressure 146/67 H 134/65 Pulse Oximetry 97 97 07/28/18 15:20 07/28/18 16:00 07/28/18 19:24 Temperature 98.9 F 98.7 F Pulse Rate 88 77 Respiratory Rate 14 16 18 Blood Pressure 132/78 125/60 Pulse Oximetry 95 97 07/28/18 23:08 07/29/18 02:46 07/29/18 03:48 Temperature 97.2 F L 97.6 F Pulse Rate 88 70 Respiratory Rate 18 18 19 Blood Pressure 133/61 117/57 L Pulse Oximetry 96 93 L Intake & Output 07/28/18 07/28/18 07/29/18 06:59 18:59 06:59 Intake Total 1480 / 1480 1550 / 1550 1070 / 1070 Output Total 1050 / 1050 650 / 650 Balance 430 / 430 900 / 900 1070 / 1070 Weight 95.2 kg 92.1 kg Intake: IV 1000 / 1000 350 / 350 NS Inj 1,000 ML @ 84 mls/hr IV. 1000 / 1000 CONT .[id number] [facility] Rx#:[id number] Vancomycin Inj 1,000 MG In NS 250 / 250 Inj 250 ML @ 250 mls/hr IV.SIG Q12H [facility] Rx#:[id number] Ancef 2 GM Premix Inj 2 gm In 100 / 100 50 ml @ 100 mls/hr IV.SIG Q8H [facility] Rx#:[id number] Oral 480 / 480 720 / 720 Anesthesia Amount 1550 / 1550 Output: Urine 1050 / 1050 100 / 100 Estimated Blood Loss 300 / 300 Urine Amount (Catheter) 250 / 250 Indwelling Urethral Catheter 250 / 250 Other: # Bowel Movements 0 Narrative: LLE: dressing clean and dry. intact. +drain. minimal drainage. +CKS. nvi - Urinary Catheter Management Indwelling Urethral Catheter Cath placed during this visit: no Reason for continuing: Hourly intake/output Results - Labs CBC & Chem 7: 07/29/18 04:51 07/28/18 05:10 Laboratory Results - last 24 hr 07/28/18 07/29/18 05:10 04:51 Hgb 8.3 L D Hct 24.5 L Sodium 138 Potassium 4.5 Chloride 108 H Carbon Dioxide 24.6 Anion Gap 5 BUN 18 Creatinine 1.30 Estimated GFR 52 L Random Glucose 97 Calcium 7.9 L D - Imaging Impressions Hip X-Ray 07/28/18 00:00 CONCLUSION: Status post open right internal fixation. Hip X-Ray 07/28/18 00:00 CONCLUSION: 1. Status post left hip arthroplasty revision, as above. Assessment and Plan - Assessment and Plan 1) Left Periprosthetic Proximal femur fracture s/p ORIF with Revision Total hip stem - POD 1 -TTWB -maintain surgical dressing x 6 days -begin daily dressing changes at POD 7 with primapore/coverderm -begin adding xeroform POD 10 -DC drain and echevarria today -will have bring hearing aids today -will plan for rehab -DVT prophylaxis -f/u with Mindi or [facility] in 2 weeks
[2018-07-29] MEDS: Senna/Docusate Sodium 8.6/50 MG Tablet PO SCH ×2 (09:41→21:29)
[2018-07-29] MEDS: Ferrous Sulfate 325 MG Tablet PO SCH ×3 (09:41→18:58)
[2018-07-29] MEDS: Calcium/Vitamin D 250/125 MG Tablet PO SCH ×3 (09:41→18:58)
[2018-07-29] MEDS: Metoprolol Tartrate 25 MG Tablet PO SCH (09:54)
--- NOTE | 2018-07-29 11:08 | P.PNIM ---
Subjective Interval history: in no acute distress. resting comfortably. pain seems to be fairly controlled. Physical Exam Vital signs: Last Vital Signs Temp 98.3 F 07/29/18 08:00 Pulse 77 07/29/18 08:00 Resp 20 07/29/18 08:00 BP 115/60 07/29/18 08:00 Pulse Ox 94 L 07/29/18 08:45 Intake & Output 07/27/18 07/28/18 07/29/18 07/30/18 06:59 06:59 06:59 06:59 Intake Total 2480 / 2480 2620 / 2620 Output Total 1350 / 1350 655 / 655 Balance 1130 / 1130 1965 / 1965 Weight 95.2 kg 92.1 kg Constitutional no acute distress Routine Respiratory Exam Present CTA bilaterally Routine Cardiovascular Exam Present RRR Routine Abdominal Exam Present soft Routine Extremities Exam Comments: no pedal edema. Routine Neurological Exam Present alert and oriented X3 Urinary Catheter Management Indwelling Urethral Catheter: Cath placed during this visit: no Results Labs CBC & Chem 7: 07/29/18 04:51 07/28/18 05:10 Imaging Imaging: Impressions Hip X-Ray 07/28/18 00:00 CONCLUSION: Status post open right internal fixation. Hip X-Ray 07/28/18 00:00 CONCLUSION: 1. Status post left hip arthroplasty revision, as above. Assessment and Plan Plan A/P - left hip fracture after a fall; s/p Open reduction to fixation left proximal femur fracture, revision of left total hip arthroplasty femoral component on ; continue pain control and PT- ortho following. -anemia- post-op; will continue to monitor H/H and transfuse as needed. -atrial fibrillation; resumed Metoprolol- now on Xarelto ( for DVT prophylaxis) ; however may not be a good candidate for long-term anticoagulation due to being high-risk for falls; will consider aspirin after has finished the course of Xarelto for DVT prophylaxis. -CVA; started on Xarelto- will consider switching to aspirin ( long-term) after has finished the course of Xarelto for DVT prophylaxis. -acute kidney injury superimposed on chronic renal insufficiency- has much improved. -DVT prophylaxis; per ortho. Discharge Planning: when cleared by ortho. Progress Note: Quality VTE Deep Vein Thrombosis/Pulmonary Embolism Present on Admission: No
[2018-07-29] MEDS: Rivaroxaban 10 MG Tablet PO SCH (13:02)
[2018-07-29] MEDS: Vancomycin Inj 1,000 MG in Sodium Chlor 0.9% Inj 250 ML IV.SIG SCH (13:02)
[2018-07-29] MEDS: Sod Chloride 0.9% Inj 1,000 ML IV.CONT SCH ×2 (14:58→21:29)
[2018-07-30] MEDS: ceFAZolin 2 GM Premix Inj 2 GM/50 ML PIGGYBACK IV.SIG SCH ×2 (03:51→09:40)
[2018-07-30 05:28] LABS: Hematocrit 19.7 % (39.0-51.0); Hemoglobin 6.6 gm/dL (13.0-17.0)
[2018-07-30] MEDS ORDERED: Acetaminophen 325 MG Tablet PO PRN (05:40)
[2018-07-30] MEDS ORDERED: Sodium Chloride 0.9% 2 ML Flush PRN IV.FLUSH (05:44)
[2018-07-30] MEDS ORDERED: Sodium Chlor 0.9% Inj 250 ML IV.SIG SCH (06:00)
--- NOTE | 2018-07-30 06:54 | P.PNOP ---
Subjective Interval history: POD 2 s/p ORIF and revision left hip stem doing well. states pain controlled. out of bed to chair yesterday Physical Exam Vital signs: Vital Signs 07/29/18 08:00 07/29/18 08:45 07/29/18 09:00 Temperature 98.3 F Pulse Rate 77 85 Respiratory Rate 20 Blood Pressure 115/60 Pulse Oximetry 96 94 L 07/29/18 11:32 07/29/18 15:57 07/29/18 16:00 Temperature 98.3 F 97.8 F Pulse Rate 87 75 Respiratory Rate 20 18 Blood Pressure 132/65 124/58 L Pulse Oximetry 95 95 95 07/29/18 20:00 07/29/18 20:17 07/30/18 00:00 Temperature 98.6 F 97.4 F L Pulse Rate 80 79 78 Respiratory Rate 18 18 Blood Pressure 119/90 125/60 Pulse Oximetry 98 98 07/30/18 00:03 07/30/18 04:00 Temperature 97.3 F L Pulse Rate 80 69 Respiratory Rate 17 Blood Pressure 123/58 L Pulse Oximetry 98 Intake & Output 07/29/18 07/29/18 07/30/18 06:59 18:59 06:59 Intake Total 1070 / 1070 1300 / 1300 530 / 530 Output Total 5 / 5 125 / 125 400 / 400 Balance 1065 / 1065 1175 / 1175 130 / 130 Weight 92.1 kg 90 kg Intake: IV 350 / 350 1300 / 1300 50 / 50 LR 1000 mL Inj 1,000 ML @ 50 1000 / 1000 mls/hr IV.CONT .Q20H [facility] Rx#: [id number] Vancomycin Inj 1,000 MG In NS 250 / 250 250 / 250 Inj 250 ML @ 250 mls/hr IV.SIG Q12H [facility] Rx#:[id number] Ancef 2 GM Premix Inj 2 gm In 100 / 100 50 / 50 50 / 50 50 ml @ 100 mls/hr IV.SIG Q8H [facility] Rx#:[id number] Oral 720 / 720 480 / 480 Output: Urine 125 / 125 400 / 400 Wound Drainage 5 / 5 Left Hip 5 / 5 Other: # Voids 1 Date of Last Bowel Movement 07/27/18 # Bowel Movements 0 Narrative: LLE: dressing clean and dry. intact. NVI. strong dorsiflexion. +knee brace - Urinary Catheter Management Indwelling Urethral Catheter Cath placed during this visit: no Reason for continuing: Hourly intake/output Results - Labs CBC & Chem 7: 07/30/18 04:42 07/28/18 05:10 Laboratory Results - last 24 hr 07/30/18 07/30/18 04:42 05:40 Hgb 6.6 L* Hct 19.7 L* MTS Gel Crossmatch See Detail Assessment and Plan - Assessment and Plan 1) Left Periprosthetic Proximal femur fracture s/p ORIF with Revision Total hip stem - POD 2 -TTWB -maintain surgical dressing x 6 days -begin daily dressing changes at POD 7 with primapore/coverderm -begin adding xeroform POD 10 -will plan for rehab -DVT prophylaxis -ortho cleared for DC to rehab when arrangements made -f/u with Mindi or [facility] in 2 weeks [facility] Prescription Drug Monitoring Database has been queried and verified prior to prescribing the controlled substance. Acute pain exception. This patient has normal, predicted, physiological, and time limited response to an adverse mechanical stimulus associated with surgery, trauma, or acute illness as described in my notes. There is a lack of alternative treatment options other than to include the prescribed narcotic treatment for this condition.
[2018-07-30] MEDS: Calcium/Vitamin D 250/125 MG Tablet PO SCH ×3 (09:44→18:00)
[2018-07-30] MEDS: Metoprolol Tartrate 25 MG Tablet PO SCH (09:44)
[2018-07-30] MEDS: Sodium Chloride 0.9% 2 ML Flush BID IV.FLUSH SCH ×2 (09:44→20:12)
[2018-07-30] MEDS: Ferrous Sulfate 325 MG Tablet PO SCH ×3 (09:44→18:00)
[2018-07-30] MEDS: Senna/Docusate Sodium 8.6/50 MG Tablet PO SCH ×2 (09:44→20:12)
[2018-07-30] MEDS: Sod Chloride 0.9% Inj 1,000 ML IV.CONT SCH ×2 (09:45→21:40)
[2018-07-30] MEDS: Rivaroxaban 10 MG Tablet PO SCH (12:09)
--- NOTE | 2018-07-30 12:11 | P.PNIM ---
Subjective Interval history: resting comfortably with no distress. pain seems to be fairly controlled. d/w the RN and no acute issues over night. Physical Exam Vital signs: Last Vital Signs Temp 98.4 F 07/30/18 11:35 Pulse 75 07/30/18 11:35 Resp 16 07/30/18 11:35 BP 141/65 H 07/30/18 11:35 Pulse Ox 95 07/30/18 11:35 Intake & Output 07/28/18 07/29/18 07/30/18 07/31/18 06:59 06:59 06:59 06:59 Intake Total 2480 / 2480 3620 / 3620 1880 / 1880 1000 / 1000 Output Total 1350 / 1350 655 / 655 525 / 525 Balance 1130 / 1130 2965 / 2965 1355 / 1355 1000 / 1000 Weight 95.2 kg 92.1 kg 90 kg Constitutional no acute distress Routine Respiratory Exam Present CTA bilaterally Routine Cardiovascular Exam Present RRR Routine Abdominal Exam Present soft Routine Extremities Exam Comments: no pedal edema. Routine Neurological Exam Present alert and oriented X3 Urinary Catheter Management Indwelling Urethral Catheter: Cath placed during this visit: no Results Labs CBC & Chem 7: 07/30/18 04:42 07/28/18 05:10 Assessment and Plan Plan A/P - left hip fracture after a fall; s/pOpen reduction to fixation left proximal femur fracture, revision of left total hip arthroplasty femoral component. continue pain control and PT- ortho following. -atrial fibrillation; resumed Metoprolol- hold aspirin- probably not a good candidate for long-term anticoagulation; will resume aspirin when has finished Xarelto for DVT prophylaxis. -CVA; on Xarelto- will resume aspirin and plavix when has finished the course of Xarelto for DVT prophylaxis. [id number]; will transfuse with PRBC and monitor H/H. -renal insufficiency- likely chronic- will monitor -DVT prophylaxis; on Xarelto. Discharge Planning: dc to SNF tomorrow if stable. Progress Note: Quality VTE Deep Vein Thrombosis/Pulmonary Embolism Present on Admission: No
[2018-07-31 05:21] LABS: Hematocrit 27.8 % (39.0-51.0); Hemoglobin 9.6 gm/dL (13.0-17.0)
--- NOTE | 2018-07-31 06:32 | P.PNOP ---
Subjective Interval history: POD 3 s/p revision hip stem with ORIF left proximal femur doing well. no changes. pain controlled Physical Exam Vital signs: Vital Signs 07/30/18 08:00 07/30/18 11:14 07/30/18 11:20 Temperature 98.4 F 98.6 F 98.6 F Pulse Rate 76 74 74 Respiratory Rate 16 16 16 Blood Pressure 141/63 H 130/60 130/60 Pulse Oximetry 95 96 96 07/30/18 11:35 07/30/18 15:10 07/30/18 15:41 Temperature 98.4 F 98.2 F Pulse Rate 75 72 Respiratory Rate 16 16 Blood Pressure 141/65 H 136/61 Pulse Oximetry 95 97 95 07/30/18 17:44 07/30/18 18:00 07/30/18 19:27 Temperature 98.6 F 98.7 F 98.4 F Pulse Rate 74 73 76 Respiratory Rate 16 17 22 Blood Pressure 130/60 137/65 143/65 H Pulse Oximetry 96 98 98 07/30/18 23:47 07/31/18 00:30 07/31/18 03:58 Temperature 98.2 F 98.1 F Pulse Rate 78 68 Respiratory Rate 20 17 18 Blood Pressure 149/70 H 135/65 Pulse Oximetry 97 99 Intake & Output 07/30/18 07/30/18 07/31/18 06:59 18:59 06:59 Intake Total 580 / 580 2170 / 2170 1400 / 1400 Output Total 400 / 400 600 / 600 Balance 180 / 180 1570 / 1570 1400 / 1400 Weight 90 kg Intake: IV 100 / 100 1050 / 1050 1000 / 1000 NS Inj 1,000 ML @ 84 mls/hr IV. 1000 / 1000 1000 / 1000 CONT .[id number] [facility] Rx#:[id number] Ancef 2 GM Premix Inj 2 gm In 100 / 100 50 / 50 50 ml @ 100 mls/hr IV.SIG Q8H [facility] Rx#:[id number] Oral 480 / 480 720 / 720 Intake (Blood Product) Amt 400 / 400 400 / 400 Rbc As-3 Leukoreduced Unit 400 / 400 [id number] Rbc As-3 Leukoreduced Unit 0 / 0 400 / 400 [id number] Output: Urine 400 / 400 600 / 600 Other: Date of Last Bowel Movement 1207/27/18 07/27/18 # Bowel Movements 0 Narrative: LLE: dressing clean and dry. intact. +CKS. nvi - Urinary Catheter Management Indwelling Urethral Catheter Cath placed during this visit: no Reason for continuing: Hourly intake/output Results - Labs CBC & Chem 7: 07/31/18 04:10 07/28/18 05:10 Laboratory Results - last 24 hr 07/30/18 07/31/18 07:37 04:10 Hgb 9.6 L D Hct 27.8 L Blood Type O Negative Antibody Screen Negative MTS Gel Crossmatch See Detail Assessment and Plan - Assessment and Plan 1) Left Periprosthetic Proximal femur fracture s/p ORIF with Revision Total hip stem - POD 3 -TTWB -maintain surgical dressing x 6 days -begin daily dressing changes at POD 7 with primapore/coverderm -begin adding xeroform POD 10 -will plan for rehab -DVT prophylaxis -ortho cleared for DC to rehab when arrangements made -f/u with Mindi or [facility] in 2 weeks [facility] Prescription Drug Monitoring Database has been queried and verified prior to prescribing the controlled substance. Acute pain exception. This patient has normal, predicted, physiological, and time limited response to an adverse mechanical stimulus associated with surgery, trauma, or acute illness as described in my notes. There is a lack of alternative treatment options other than to include the prescribed narcotic treatment for this condition.
--- NOTE | 2018-07-31 09:28 | P.DS ---
Date of admission: 07/27/18 09:11 Primary care physician: Hubert Lehman MD Attending physician on discharge: Katie Booker Anticipated date of discharge: 07/31/18 Brief History from admission: patient is a 88 y/o male, very hard of hearing, who presented to ER with left hip pain. 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 he says that he has a problem with keeping his balance and he fell before. he says that the pain is mild while he' s not moving. otherwise he denies any other complaints including chest pain or sob. he doesn't report any loss of consciousness. DS: Medications - Discharge Medications Prescriptions: hydrocodone-acetaminophen [Lyons] 1 tab PO Q4H #40 tab rivaroxaban [Xarelto] 10 mg PO DAILY #14 tab DS: Summary Hospital Course: 88-year-old male with past medical history significant for CKD stage III, A. fib, HLD, HTN, TIA, testicular cancer, osteoarthritis, and hard of hearing who presented to the emergency department on 07/27 after mechanical fall resulting in prosthetic left proximal femur fracture. Orthopedic services was consulted and patient underwent ORIF of left proximal femur fracture, revision of left total hip arthroplasty in femoral component by on . Postoperatively patient had anemia with drop in hemoglobin to 6.6 for which she received 2 units of PRBCs. Recheck H&H this morning 9.6. Pain control with oral Lyons, DVT prophylaxis with Xarelto. Patient is seen and examined resting in bed comfortably this morning in no acute distress. Denies any pain or discomfort at the moment. Denies any fevers, chills or shortness of breath. PT has evaluated patient and PT at rehab. Orthopedic services have cleared patient for discharge. - Time Spent with Patient Total time spent providing and/or coordinating discharge services: Greater than 30 minutes - Quality: VTE Deep Vein Thrombosis/Pulmonary Embolism Present on Admission: No Exam Vital signs: Vital Signs 07/30/18 11:14 07/30/18 11:20 07/30/18 11:35 Temperature 98.6 F 98.6 F 98.4 F Pulse Rate 74 74 75 Respiratory Rate 16 16 16 Blood Pressure 130/60 130/60 141/65 H Pulse Oximetry 96 96 95 07/30/18 15:10 07/30/18 15:41 07/30/18 17:44 Temperature 98.2 F 98.6 F Pulse Rate 72 74 Respiratory Rate 16 16 Blood Pressure 136/61 130/60 Pulse Oximetry 97 95 96 07/30/18 18:00 07/30/18 19:27 07/30/18 21:02 Temperature 98.7 F 98.4 F 98.4 F Pulse Rate 73 76 70 Respiratory Rate 17 22 18 Blood Pressure 137/65 143/65 H 135/70 Pulse Oximetry 98 98 97 07/30/18 23:47 07/31/18 00:30 07/31/18 03:58 Temperature 98.2 F 98.1 F Pulse Rate 78 68 Respiratory Rate 20 17 18 Blood Pressure 149/70 H 135/65 Pulse Oximetry 97 99 07/31/18 08:45 Temperature 98.5 F Pulse Rate 79 Respiratory Rate 19 Blood Pressure 145/84 H Pulse Oximetry 99 Intake & Output 07/30/18 07/31/18 07/31/18 18:59 06:59 18:59 Intake Total 2170 / 2170 1960 / 1960 Output Total 600 / 600 451 / 451 Balance 1570 / 1570 1509 / 1509 Weight 90.5 kg Intake: IV 1050 / 1050 1000 / 1000 NS Inj 1,000 ML @ 84 mls/hr IV. 1000 / 1000 1000 / [id number] [facility] Rx#:[id number] Ancef 2 GM Premix Inj 2 gm In 50 / 50 50 ml @ 100 mls/hr IV.SIG Q8H [facility] Rx#:[id number] Oral 720 / 720 560 / 560 Intake (Blood Product) Amt 400 / 400 400 / 400 Rbc As-3 Leukoreduced Unit 400 / 400 [id number] Rbc As-3 Leukoreduced Unit 0 / 0 400 / 400 [id number] Output: Urine 600 / 600 450 / 450 Stool 1 / 1 Other: Date of Last Bowel Movement 07/27/18 07/27/18 # Bowel Movements 0 Narrative: GENERAL: Well-developed, well-nourished male resting in bed comfortably, hard of hearing. SKIN: Warm and dry. HEAD: Atraumatic. Normocephalic. EYES: Pupils equal/round. No scleral icterus. No injection or drainage. ENT: No nasal bleeding or discharge. Mucous membranes pink and moist. NECK: Trachea midline. CARDIOVASCULAR: Regular rate and rhythm. RESPIRATORY: No accessory muscle use. Clear to auscultation. Breath sounds equal bilaterally. GASTROINTESTINAL: Abdomen soft, non-tender, nondistended. + Bowel sounds MUSCULOSKELETAL: Extremities without clubbing, cyanosis, or edema. No obvious deformities. Left lateral hip dressing with small amount of sanguinous drainage , appears dry. LLE with positive mobility, pedal pulses, normal sensation. NEUROLOGICAL: Awake, alert, oriented x3. No obvious cranial nerve deficits. Motor grossly within normal limits. Normal speech. Hard of hearing. PSYCHIATRIC: Appropriate mood and affect; insight and judgment normal. Results Procedures completed during hospitalization: (1) Fracture of femur, intertrochanteric, left, closed (2) Failure of total hip arthroplasty Date of procedure: 07/28/18 Procedure: Open reduction to fixation left proximal femur fracture, revision of left total hip arthroplasty femoral component Anesthesia: GETA Surgeon: Aris Kearney MD [employer] Operator: VIR[place]IA Pastrana PA-C Labs on day of discharge: Labs from last 24 hours 07/31/18 07/30/18 04:10 07:37 Hgb 9.6 L D Hct 27.8 L Blood Type O Negative Antibody Screen Negative MTS Gel Crossmatch See Detail - Impressions ITS Impressions Cervical Spine CT 07/27/18 07:38 CONCLUSION: Negative trauma study. Elbow X-Ray 07/27/18 07:38 CONCLUSION: Degenerative changes, no fracture. Follow-up in 7-10 days is symptoms persist. Head CT 07/27/18 07:38 CONCLUSION: Atrophy, otherwise negative for an acute process. Jadiel Mendez MD FACR . Knee X-Ray 07/27/18 07:38 CONCLUSION: Anatomic alignment, no fracture Extensive vascular calcifications Chest X-Ray 07/27/18 08:45 CONCLUSION: Moderate congestive failure, no pneumothorax. Hip X-Ray 07/28/18 00:00 CONCLUSION: Status post open right internal fixation. Discharge Plan - Discharge Disposition Patient Disposition: Discharge to SNF - Discharge Condition Condition: Stable - Discharge Order Discharge Orders: Discharge Order (Routine); Ordered 07/31/18 Ordered By: Sada Cox Orthopedic Clear for Discharge (Routine); Ordered 07/30/18 Ordered By: Tiburcio Sauer - Physicians Team Primary Care Provider: Hubert Lehman V Attending Provider: Katie Booker Other Providers: Aris Kearney MD ; Rodolfo Reynolds
[2018-07-31] MEDS: Calcium/Vitamin D 250/125 MG Tablet PO SCH (11:08)
[2018-07-31] MEDS: Metoprolol Tartrate 25 MG Tablet PO SCH (11:08)
[2018-07-31] MEDS: Ferrous Sulfate 325 MG Tablet PO SCH (11:08)
[2018-07-31] MEDS: Sod Chloride 0.9% Inj 1,000 ML IV.CONT SCH (11:11)
[2018-07-31] MEDS: Senna/Docusate Sodium 8.6/50 MG Tablet PO SCH (11:11)
[2018-07-31] MEDS: Sodium Chloride 0.9% 2 ML Flush BID IV.FLUSH SCH (11:11)
== END 2018-07-31 14:23 ==
LOC: NEPC 07:11 → NEDA 09:11 → N07 12:36 → N06 07-28 14:06
PROVIDERS: ADMIT Hospitalist; ATTEND Hospitalist
PROC: ORIFFEM (2018-07-28 11:00)